=== PATIENT | female | born 1955 | race Caucasian/White ===

== ENCOUNTER 2018-06-21 06:20 | Day surgery (SDC) | payer OTHER ==
[~2018-06-21] VITALS: Ht 165.1 cm; Wt 71.2 kg
[~2018-06-21 06:20] MED LIST: ATOR20 PO; BENZ100A PO; Flonase 0.05% N16 GM; LOSA25 PO; Metformin HCl500 MG PO; Zithromax250 MG PO
--- NOTE | 2018-06-21 08:07 | NUR ---
06/21/18 0807 Jorje Perry PATIENT DECIDED TO USE AN DYNAMITE CARTRIDGE CRIMPER RATHER THAN HER DAUGHTER FOR THE PRE-OP ADMITTING PROCESS. THAIS WAS THE NAME OF TELEPHONE DYNAMITE CARTRIDGE CRIMPER THAT ASSISTED BOTH PATIENT & NURSE.
--- NOTE | 2018-06-21 08:35 | NUR ---
06/21/18 0835 Ana Dominguez ON FIELD FOR GELFOAM APPLICATION. NACL 1000 ML FOR BACITRACIN MIX.
--- NOTE | 2018-06-21 11:42 | NUR ---
06/21/18 1142 Padilla Foy LATE ENTRY: AT 1042 WHEN PT WAS BROUGHT TO STEPDOWN FROM PACU, PT DENIED PAIN OR NAUSEA. PT WAS TRANSFERED TO RECLINER FROM THE BED WITH TWO NURSE ASSIST. PT TRANSFFERED WELL. PT WAS VERY DIAPHORETIC, HOWEVER, PT DENIES ANY PAIN. VS WNL. PT HAD EMESIS OF ABOUT 50CC YELLOWISH BILE. ZOFRAN GIVEN. PT NOW TOLERATING CRACKERS. PT ALSO, WHEELED TO BATHROOM AND URINATED. CABLE MACHINE OPERATOR USED TO COMMUNICATE WITH PT. ALSO, HER FAMILY IS AT CHAIR SIDE. WILL CONTINUE TO MONITOR.
== END 2018-06-21 14:39 | disposition home or self-care (01) ==
LOC: ORSCSDS 06:20
PROVIDERS: Otolaryngology
PROC: 09R807Z Replacement of Left Tympanic Membrane with Autologous Tissue Substitute, Open Approach (ICD-10-PCS; principal; 2018-06-21 07:30)
DX: H71.12 Cholesteatoma of tympanum, left ear (principal); H90.72 Mixed conductive and sensorineural hearing loss, unilateral, left ear, with unrestricted hearing on the contralateral side; I10 Essential (primary) hypertension; E11.9 Type 2 diabetes mellitus without complications; Z79.899 Other long term (current) drug therapy
CPT/HCPCS: 82947; 88304; J0696; J1100; J2250; J2370; J2405; J2765; J3010; J3360

== ENCOUNTER → 2018-08-28 | Outpatient (CLI) | payer OTHER ==
[2018-08-31 15:07] LABS: HPV 16 Negative (Negative); HPV 18 Negative (Negative); HPV OTHER HR TYPES Negative (Negative)
== END | disposition home or self-care (01) ==
LOC: LAB SHORT 10:01 → LAB SRC 10:01
PROVIDERS: Nurse Practitioner Family
DX: Z01.419 Encounter for gynecological examination (general) (routine) without abnormal findings (principal)
CPT/HCPCS: 87624; G0123

== ENCOUNTER → 2018-09-04 | Outpatient (CLI) | payer OTHER | END | disposition home or self-care (01) | LOC: LAB SHORT 17:30 → LAB 17:30 | DX: N30.00 Acute cystitis without hematuria (principal); R30.0 Dysuria | CPT/HCPCS: 87077; 87086; 87186 ==

== ENCOUNTER → 2018-09-14 | Outpatient (CLI) | payer OTHER ==
[2018-09-14 09:38] LABS: Source, Urine Clean Catch
[2018-09-14 13:09] LABS: Bilirubin, Urine Neg (Neg); Blood, Urine Neg (Neg); Glucose Qualitative, Urine Neg (Neg); Ketones, Urine Neg (Neg); Leukocyte Esterase, Urine Neg (Neg); Nitrite, Urine Neg (Neg); Protein, Urine Neg (Neg); Specific Gravity, Urine 1.015 (1.003-1.022); Urobilinogen, Urine NORM (Normal)
[2018-09-14 14:18] LABS: Appearance, Urine Clear (Clear); Color, Urine Yellow (P-Yellow)
== END | disposition home or self-care (01) ==
LOC: LAB SRC 09:37 → LAB SHORT 09:37
PROVIDERS: Nurse Practitioner Family
DX: N30.00 Acute cystitis without hematuria (principal); R30.0 Dysuria
CPT/HCPCS: 81003

== ENCOUNTER 2019-11-19 09:27 | Day surgery (SDC) | payer OTHER ==
[~2019-11-19] VITALS: Ht 162.6 cm; Wt 70.5 kg
--- NOTE | 2019-11-19 10:45 | NUR ---
TRANSLATION COMPUTER OBTAINED FROM ADMINISTRATION FOR PATIENT USAGE DURING ANGIOGRAM AROUND 1030. UPON LOGGING INTO THE COMPUTER, THE TRANSLATION SITE WAS NOT ACCESSABLE DUE TO THE DATE ON THE COMPUTER BEING [phone]. ATTEMPTED TO CHANGE THE DATE ON THE COMPUTER BUT WAS NOT ABLE TO BE CHANGED DUE TO NEEDING "PERMISSION" FROM IT. CALLED TO ADMINISTRATION INFORMING THEM OF THIS ISSUE. DISCUSSED WITH PATIENT AND DAUGHTER WHO BOTH ASKED IF DAUGHTER COULD PLEASE TRANSLATE DURING PROCEDURE IF NEEDED. IT WAS AGREED THAT A PHONE WOULD BE PLACED BY PATIENTS HEAD CONNECTED TO DAUGHTER, WHO WAS PLACED IN A PRIVATE ROOM, TO TRANSLATE IF NEEDED.
--- NOTE | 2019-11-19 14:05 | NUR ---
3mL AIR RELEASED FROM TR BAND. NO BLEEDING, OOZING OR HEMATOMA NOTED. VSS. WILL CONTINUE TO MONITOR.
--- NOTE | 2019-11-19 14:10 | NUR ---
TOTAL OF 5mL AIR RELEASED FROM TR BAND. PT DENIES ANY PAIN. NO BLEEDING, OOZING OR HEMATOMA NOTED. VSS. WILL CONTINUE TO MONITOR.
--- NOTE | 2019-11-19 14:15 | NUR ---
ALL AIR REMOVED FROM TR BAND. LITTLE OOZING NOTED. NO HEMATOMA OR EXCESSIVE BLEEDING NOTED. WILL CONTINUE TO MONITOR. VSS
--- NOTE | 2019-11-19 14:32 | NUR ---
NO CHANGE IN ORIGINAL OOZING UNDER TR BAND NOTED. BELOW TR BAND IS SOFT AND PT DENIES PAIN. VSS. WILL CONTINUE TO MONITOR.
--- NOTE | 2019-11-19 15:28 | NUR ---
DISCHARGE PT AMBUALTED TO RESTROOM AND DRESSED SELF WITH NO COMPLICATIONS. TR BAND WAS REMOVED, SITE CLEANED AND CLOTH DOT DRESSING APPLIED. WHITE BOARD PLACED ON R HAND AND R ARM PLACED IN A SLING A REMINDER NOT TO USE R HAND FOR THREE DAYS. IV DCD WITH CATH INTACT. PT AND DAUGHTER STATE THEIR UNDERSTANDING OF DISCHARGE AND SITE CARE INSTRUCTIONS AND BOTH DENY ANY QUESTIONS OR CONCERNS. VSS. PT TAKEN TO EXIT VIA WHEELCHAIR WHERE DAUGHTER WAS WAITING WITH VEHICLE.
== END 2019-11-19 15:15 | disposition home or self-care (01) ==
LOC: MHTC 09:27
PROC: 4A023N7 Measurement of Cardiac Sampling and Pressure, Left Heart, Percutaneous Approach (ICD-10-PCS; principal; 2019-11-19)
PROC: B201YZZ Plain Radiography of Multiple Coronary Arteries using Other Contrast (ICD-10-PCS; principal; 2019-11-19)
DX: R07.89 Other chest pain (principal); I10 Essential (primary) hypertension; E78.00 Pure hypercholesterolemia, unspecified; E11.9 Type 2 diabetes mellitus without complications; E78.5 Hyperlipidemia, unspecified; Z79.84 Long term (current) use of oral hypoglycemic drugs; Z79.899 Other long term (current) drug therapy
CPT/HCPCS: 76937; 93005; 93010; 93458; 99152; 99153; C1769; C1894; J1644; J2250; J3010; J7030; Q9967

== ENCOUNTER 2022-02-28 07:26 | Day surgery (SDC) | payer MEDICARE ==
[~2022-02-28] VITALS: Ht 157.5 cm; Wt 64.2 kg
--- NOTE | 2022-02-28 08:36 | NUR ---
THE PATIENT IS NON [place] SPEAKING ,CONTACTED A REAL ESTATE ATTORNEY TWICE BEFORE THE PROCEDURE. Ambulatory in [facility] warming gown applied. Patient states colon prep results clear. History, Chart, Medications and Allergies reviewed before start of procedure.Lungs clear T/O to Auscultation. Patient confirms NPO status and agrees with scheduled surgery. Pre-Op teaching done. Pt verbalizes under Patient States Post-Procedure ride home has been arranged. standing.
--- NOTE | 2022-02-28 08:41 | NUR ---
02/28/22 0841 Nikki Leiva HISTORY, CHART, MEDICATIONS AND ALLERGIES REVIEWED BEFORE START OF PROCEDURE. PATIENT CONFIRMS NPO STATUS AND AGREES WITH SCHEDULED PROCEDURE. 3-LEAD EKG REVIEWED WITH PHYSICIAN PRIOR TO START OF PROCEDURE. MONITOR INTACT WITH CONTINUOUS PULSE OXIMETRY,CAPNOGRAPHY, 3-LEAD EKG, INTERMITTENT BP. SUPPLEMENTAL O2 TO BE TITRATED THROUGHOUT PROCEDURE TO MAINTAIN O2 SATURATION ABOVE 90%. PATIENT DETERMINED TO BE ASA APPROPRIATE FOR PROPOFOL SEDATION PRIOR TO START OF PROCEDURE BY DR. ELKINS
--- NOTE | 2022-02-28 09:35 | NUR ---
Patient up to Ambulate independently. Gait steady. Discharge instructions reviewed with patient. Patient verbalizes understanding. Copy given to patient to take home. Patient States Post-Procedure ride home has been arranged. Discharged via wheelchair to private car for ride home. PT GIVEN VERBAL DISCHARGE INSTRUCTIONS PT DID NOT WANT CENTRAL OFFICE EQUIPMENT INSTALLER PHONE FOR DISCHAGE STATES SHE UNDERSTOOD ALL INSTRUCTIONS
== END 2022-02-28 23:03 | disposition home or self-care (01) ==
LOC: ORSCMMR 07:26 → ORD 08:30 → ORSCMMR 08:30
PROVIDERS: Internal Medicine Gastroenterology
PROC: 0DBM8ZX Excision of Descending Colon, Via Natural or Artificial Opening Endoscopic, Diagnostic (ICD-10-PCS; principal; 2022-02-28 08:30)
PROC: 0DBK8ZX Excision of Ascending Colon, Via Natural or Artificial Opening Endoscopic, Diagnostic (ICD-10-PCS; principal; 2022-02-28 08:30)
DX: Z12.11 Encounter for screening for malignant neoplasm of colon (principal); D12.2 Benign neoplasm of ascending colon; D12.4 Benign neoplasm of descending colon; Z86.010 Personal history of colon polyps; E78.00 Pure hypercholesterolemia, unspecified; Z79.899 Other long term (current) drug therapy
CPT/HCPCS: 88305; J2704; J7120

== ENCOUNTER 2023-11-16 12:32 | Emergency (ER) | payer OTHER ==
[~2023-11-16] VITALS: Ht 157.5 cm; Wt 70.3 kg
[2023-11-16 13:09] LABS: BASOPHILS ABSOLUTE AUTO 0.06 K/mm3 (0.00-0.23); BASOPHILS PERCENT AUTO 1 % (0-2); EOSINOPHILS ABSOLUTE AUTO 0.14 K/mm3 (0.00-0.68); EOSINOPHILS PERCENT AUTO 2 % (0-6); Hematocrit 39.3 % (33.0-51.0); Hemoglobin 12.8 g/dL (11.5-16.0); IMMATURE GRAN ABSOLUTE AUTO 0.02 K/mm3 (0.00-0.10); IMMATURE GRAN PERCENT AUTO 0 % (0-1); LYMPHOCYTES ABSOLUTE AUTO 2.69 K/mm3 (0.84-5.20); LYMPHOCYTES PERCENT AUTO 38 % (21-46); MONOCYTES ABSOLUTE AUTO 0.55 K/mm3 (0.16-1.47); MONOCYTES PERCENT AUTO 8 % (4-13); Mean Corpuscular HGB 28.1 pg (26.0-34.0); Mean Corpuscular HGB Conc 32.6 g/dL (31.5-36.5); Mean Corpuscular Volume 86 fL (80-100); Mean Platelet Volume 9.8 fL (9.1-12.4); NEUTROPHILS ABSOLUTE AUTO 3.65 K/mm3 (1.96-9.15); NEUTROPHILS PERCENT AUTO 51 % (41-73); Platelet Count 248 K/mm3 (150-400); RDW Coefficient Variation 12.4 % (11.7-14.2); RDW Standard Deviation 39.2 fL (35.1-46.3); Red Blood Cell Count 4.55 M/mm3 (3.80-5.20); White Blood Cell Count 7.11 K/mm3 (4.00-11.30)
[2023-11-16 13:41] LABS: Albumin, Blood 3.9 g/dL (3.4-5.0); Bilirubin, Total 0.7 mg/dL (0.1-1.0); Bun/Creatinine Ratio 34.3 (12.0-20.0); Calcium, Blood 9.1 mg/dL (8.5-10.1); Creatinine, Blood 0.82 mg/dL (0.40-1.00); Globulin, Blood 3.9 g/dL (2.2-4.0); Potassium, Blood 3.7 mmol/L (3.5-5.5); Total Protein, Blood 7.8 g/dL (6.4-8.2)
[2023-11-16 16:30] VITALS: BP 130/87
== END 2023-11-16 16:36 | disposition home or self-care (01) ==
LOC: ER 12:32
PROVIDERS: Nurse Practitioner
DX: R07.9 Chest pain, unspecified (principal)
CPT/HCPCS: 71046; 80053; 84484; 85025; 93005; 93010; 99285-25